=== PATIENT | male | born 1965 ===

== ENCOUNTER 2018-05-30 01:20 | Emergency (ER) | payer BC ==
[2018-05-30 01:27] VITALS: RESP 16
[2018-05-30] MEDS ORDERED: Sodium Chloride 0.9% 1,000 ML IV ONE (01:46)
[2018-05-30] MEDS ORDERED: Morphine 4 MG/ML VIAL ONE ×2 (01:53→04:39)
--- NOTE | 2018-05-30 01:58 | C.PDOC ---
History Of Present Illness 52 year old male presents to the ED c/o new onset RUQ abdominal pain that staretd today 2 hours [employer]. Patient reports symptoms started after eating heavy fatty foods. Patient reports his pain is localized and dull. Patient states he f eels bloated with some nausea. Patient denies fever, chills, vomit, diarrhea, back pain, rash. Time Seen by Provider: 05/30/18 01:40 Chief Complaint (Nursing): Abdominal Pain History Per: Patient History/Exam Limitations: no limitations Onset/Duration Of Symptoms: Hrs (2) Current Symptoms Are (Timing): Still Present Context: Food Location Of Pain/Discomfort: RUQ Radiation Of Pain To:: Other Quality Of Discomfort: Dull Associated Symptoms: Nausea. denies: Diarrhea, Urinary Symptoms Exacerbating Factors: Food Recent travel outside of the [place]: No Additional History Per: Patient Past Medical History Reviewed: Historical Data, Nursing Documentation, Vital Signs Vital Signs: Last Vital Signs Temp 97.2 F L 05/30/18 01:25 Pulse 71 05/30/18 01:25 Resp 16 05/30/18 01:25 BP 149/91 H 05/30/18 01:25 Pulse Ox 100 05/30/18 01:25 - Medical History PMH: No Chronic Diseases Surgical History: No Surg Hx Family History: States: Unknown Family Hx - Social History Hx Alcohol Use: No Hx Substance Use: No Review Of Systems Constitutional: Negative for: Fever, Chills Cardiovascular: Negative for: Chest Pain, Palpitations Respiratory: Negative for: Cough, Shortness of Breath Gastrointestinal: Positive for: Nausea, Abdominal Pain. Negative for: Vomiting, Diarrhea Skin: Negative for: Rash Neurological: Negative for: Weakness, Numbness Physical Exam - Physical Exam Appears: Non-toxic, In Acute Distress Skin: Normal Color, Warm, Dry Head: Atraumatic, Normacephalic Eye(s): bilateral: Normal Inspection Oral Mucosa: Moist Neck: Normal ROM, Supple Chest: Symmetrical Cardiovascular: Rhythm Regular Respiratory: Normal Breath Sounds, No Rales, No Rhonchi, No Wheezing Gastrointestinal/Abdominal: Soft, Tenderness (RUQ), No Guarding, No Rebound Extremity: Normal ROM, No Tenderness, No Swelling Neurological/Psych: Oriented x3, Normal Speech, Normal Cognition Gait: Steady ED Course And Treatment - Laboratory Results Result Diagrams: 05/30/18 02:03 05/30/18 02:03 O2 Sat by Pulse Oximetry: 100 (ON RA) Pulse Ox Interpretation: Normal - CT Scan/US US abdomen Other Rad Studies (CT/US): Read By Radiologist, Radiology Report Reviewed CT/US Interpretation: Ultrasound abdomen, limited. Indication: Right upper quadrant pain. Technique: Real-time ultrasound images were obtained. Findings: The liver is normal in size measuring 14.2 cm. Increased hepatic echogenicity. Nondilated common bile duct measuring 4 mm. Cholelithiasis. Non mobile gallstone is noted in the neck of the gallbladder. Normal gallbladder wall thickness measuring 2 mm. Negative sonographic Parkinson. Nonvisualization of the pancreas. Visualization of the IVC. Unremarkable aorta as visualized. Unremarkable right kidney measuring 10.8x5.1x5.2 cm. Impression: C holelithiasis. Impacted gallstone in the neck of the gallbladder suspicious for developing acute inflammatory pathology of the gallbladder. Surgical consultation is recommended. . Electronically signed on May 30, 2018 3:48:37 AM EST by: Jules Arriaga M.D., Certified by TONI, JOSEE, Neuroradiology Progress - Re-Evaluation Re-evaluation Note: 05/30/18 03:55 AS[facility]MPT. [facility] RAD REPORT REVIEWED. D/W SURG RESIDENT, WILL EVAL IN ER 05/30/18 04:30 SP EVAL SURG, PT REQUESTING OUTPT EVALATION - Data Reviewed Data Reviewed: Lab, Diagnostic imaging, Old records Medical Decision Making Medical Decision Making: Plan: * Labs * Morphine 2 mg IVP * Pepcid 20 mg IVP * IV fluids * Zofrab 4 mg IVP * US abdomen Disposition Counseled Patient/Family Regarding: Studies Performed, Diagnosis, Need For Followup, Rx Given - Disposition Referrals: Felix Goel MD [Staff Provider] - Disposition: HOME/ ROUTINE Disposition Time: 04:30 Condition: IMPROVED Prescriptions: Ondansetron ODT [Zofran ODT] 4 mg PO TID PRN #12 odt PRN Reason: Nausea/Vomiting oxyCODONE/Acetaminophen [Percocet 5/325 mg Tab] 1 ea PO QID #8 tab Instructions: Gallstones (DC) Forms: [employer] (Bahamian), Work Excuse - Clinical Impression Clinical Impression: Biliary colic - Scribe Statement The provider has reviewed the documentation as recorded by the Scribe Lev Anaya All medical record entries made by the [employer] were at my direction and personally dictated by me. I have reviewed the chart and agree that the record accurately reflects my personal performance of the history, physical exam, medical decision making, and the department course for this patient. I have also personally directed, reviewed, and agree with the discharge instructions and disposition.
[2018-05-30 02:08] LABS: BASO % 0.5 % (0.0-2.0); EOS # 0.1 K/uL (0.0-0.7); EOS % 1.1 % (0.0-4.0); LYMPH # 2.5 K/uL (1.0-4.3); LYMPH % 33.5 % (20.0-40.0); MEAN CELL VOLUME 89.2 fL (80.0-94.0); MEAN CORPUSCULAR HEMOGLOBIN 30.1 pg (27.0-31.0); MEAN CORPUSCULAR HGB CONC 33.7 g/dL (33.0-37.0); MEAN PLATELET VOLUME 8.2 fL (7.2-11.7); MONO # 0.5 K/uL (0.0-0.8); MONO % 6.2 % (0.0-10.0); NEUT # 4.4 K/uL (1.8-7.0); NEUT % 58.7 % (50.0-75.0); NRBC % 0.1 % (0.0-2.0); RBC 5.31 Mil/uL (4.40-5.90); RED CELL DISTRIBUTION WIDTH 13.3 % (11.5-14.5); WHITE BLOOD COUNT 7.5 K/uL (4.8-10.8)
[2018-05-30 02:18] LABS: ALB/GLOB RATIO 1.5 (1.0-2.1); ALBUMIN 4.9 g/dL (3.5-5.0); ALT/SGPT 108 U/L (21-72); AST/SGOT 88 U/L (17-59); BLOOD UREA NITROGEN 16 mg/dL (9-20); CALCIUM 9.4 mg/dl (8.6-10.4); GFR NON-AFRICAN AMERICAN > 60; LIPASE 252 U/L (23-300)
--- NOTE | 2018-05-30 04:18 | CP.PCM.CON ---
History of Present Illness - History of Present Illness History of Present Illness: Surgery Consult Note for Dr. Goel Consult: Symptomatic Cholelithiasis CC: RUQ Pain HPI: 52 year old male, no significant past medical history, who presents to the emergency department with sudden onset right upper quadrant pain and associated nausea. Patient states he had dinner (pork ribs, lithuanian rice, and cookies) at 7pm and by 9pm his symptoms began. He has never had this pain before. States it is localized to the RUQ, currently asymptomatic. Nothing alleviates or aggravates his symptoms. Denies f/c, v/d, SOB, CP, or urinary symptoms. PMH: Nephrolithiasis PSH: Denies FH: Noncontributory SH: Denies tobacco, alcohol, drugs ALL: NKDA Meds: See MAR Review of Systems - Constitutional Constitutional: absent: Chills, Fever - EENT Eyes: absent: Blurred Vision, Change in Vision Nose/Mouth/Throat: absent: Nasal Congestion, Nasal Discharge - Cardiovascular Cardiovascular: absent: Chest Pain, Dyspnea - Respiratory Respiratory: absent: Cough, Dyspnea - Gastrointestinal Gastrointestinal: Abdominal Pain, Nausea. absent: Constipation, Diarrhea, Vomiting - Genitourinary Genitourinary: absent: Difficulty Urinating, Dysuria - Musculoskeletal Musculoskeletal: absent: Back Pain, Neck Pain - Integumentary Integumentary: absent: Bleeding Lesions, Changing Lesions - Neurological Neurological: absent: Confusion, Dizziness - Psychiatric Psychiatric: absent: Anxiety, Depression Past Patient History - Past Social History Smoking Status: Never Smoked - PSYCHIATRIC Hx Substance Use: No - SURGICAL HISTORY Hx Surgeries: No Meds Home Medications: Home Medication List Medication Instructions Recorded Confirmed Type Ondansetron ODT [Zofran ODT] 4 mg PO TID PRN #12 odt 05/30/18 Rx oxyCODONE/Acetaminophen [Percocet 1 ea PO QID #8 tab 05/30/18 Rx 5/325 mg Tab] Allergies/Adverse Reactions: Allergies Allergy/AdvReac Type Severity Reaction Status Date / Time No Known Allergies Allergy Unverified 05/30/18 01:27 - Medications Medications: Current Medications Sodium Chloride (Sodium Chloride 0.9%) 1,000 mls @ 250 mls/hr IV .Q4H ONE Stop: 05/30/18 05:45 Last Admin: 01/26/19 01:58 Dose: 250 mls/hr Physical Exam - Constitutional Appears: Well, Non-toxic, No Acute Distress - Head Exam Head Exam: ATRAUMATIC, NORMAL INSPECTION, NORMOCEPHALIC - Eye Exam Eye Exam: EOMI - ENT Exam ENT Exam: Mucous Membranes Moist - Respiratory Exam Respiratory Exam: NORMAL BREATHING PATTERN. absent: Respiratory Distress - Cardiovascular Exam Cardiovascular Exam: REGULAR RHYTHM. absent: Tachycardia - GI/Abdominal Exam GI & Abdominal Exam: Normal Bowel Sounds, Soft, Tenderness. absent: Distended, Guarding, Rebound - Neurological Exam Neurological exam: Alert, Oriented x3 - Psychiatric Exam Psychiatric exam: Normal Affect, Normal Mood - Skin Skin Exam: Dry, Intact, Normal Color, Warm Results - Vital Signs Recent Vital Signs: Last Vital Signs Temp 97.2 F L 05/30/18 01:25 Pulse 71 05/30/18 01:25 Resp 16 05/30/18 01:25 BP 149/91 H 05/30/18 01:25 Pulse Ox 100 05/30/18 03:55 - Labs Result Diagrams: 05/30/18 02:03 05/30/18 02:03 Labs: Laboratory Results - last 24 hr 05/30/18 05/30/18 02:03 02:03 WBC 7.5 RBC 5.31 Hgb 16.0 Hct 47.4 MCV 89.2 MCH 30.1 MCHC 33.7 RDW 13.3 Plt Count 234 MPV 8.2 Neut % (Auto) 58.7 Lymph % (Auto) 33.5 [place] % (Auto) 6.2 Eos % (Auto) 1.1 Baso % (Auto) 0.5 Neut # (Auto) 4.4 Lymph # (Auto) 2.5 [place] # (Auto) 0.5 Eos # (Auto) 0.1 Baso # (Auto) 0.0 Sodium 141 Potassium 3.5 L Chloride 99 Carbon Dioxide 32 H Anion Gap 14 BUN 16 Creatinine 1.1 Est GFR ( Amer) > 60 Est GFR (Non-Af Amer) > 60 Random Glucose 115 H Calcium 9.4 Total Bilirubin 0.5 AST 88 H ALT 108 H Alkaline Phosphatase 115 Total Protein 8.1 Albumin 4.9 Globulin 3.2 Albumin/Globulin Ratio 1.5 Lipase 252 Assessment & Plan - Assessment and Plan (Free Text) Assessment: 52M w/ RUQ pain 2/2 symptomatic cholelithiasis Abd US: stone in the gallbladder neck, no pericholecystic fluid, no wall thic kening, no CBD stones or dilation Plan: Patient states he would like to discuss with his insurance company regarding coverage of any surgical intervention prior to admission for gallbladder removal At this time he is asymptomatic and states he would prefer to follow up with Dr. Goel in her office to schedule an elective cholecystectomy Pain medication will be provided by ER physician Recommended a low fat diet Recommended to return to the ED if symptoms return or worsen D/w Dr. Amando Caceres PGY1
[2018-05-30 04:35] VITALS: BP 126/80; PULSE 67; TEMP 98.2; O2SAT 95
--- NOTE | 2018-05-30 10:16 | US ---
Right upper quadrant abdominal ultrasound HISTORY: Right upper quadrant abdominal pain. Comparison: None available. Technique: Real-time sonography was performed through the right upper quadrant of the abdomen. Findings: Limited study secondary to gaseous distention of bowel. Liver: 14.2 centimeters in length. Increased echogenicity of the hepatic parenchymal cortex suggestive for fatty infiltration versus hepatic parenchymal disease. Clinical correlation. Gallbladder: Cholelithiasis. Prominent calculus measuring 1.7 x 1.1 x 1.4 centimeters lodged at the gallbladder neck. Normal wall thickness of 2 millimeters. Negative sonographic Parkinson's sign. Common bile duct measures 4 millimeters, within normal limits. Pancreas not well visualized. Limited visualization of the aorta and IVC. Visualized portions appear grossly preserved. Right kidney: 10.8 x 5.1 x 5.2 centimeters. No calculi or hydronephrosis. Impression: Cholelithiasis with prominent gallbladder calculus lodged at the neck of the gallbladder measuring up to 1.7 millimeters. Normal wall thickness of 2 millimeters. Negative sonographic Parkinson's sign. Clinical correlation. Increased echogenicity of the hepatic parenchymal cortex suggestive for fatty infiltration versus hepatic parenchymal disease. Clinical correlation. Pancreas not well visualized. A preliminary report was generated at 3:48 a.m. on 05/30/[address] Jules Arriaga from [employer].
== END 2018-05-30 05:01 | disposition home or self-care (01) ==
LOC: C.ER 01:20
DX: K80.20 Calculus of gallbladder without cholecystitis without obstruction (principal)
CPT/HCPCS: 76705; 80053; 83690; 85025; 96374; 96375; 96376; 99284; J2270; J2405; J7030

== ENCOUNTER 2018-09-23 07:14 | Outpatient (CLI) | payer BC | END 2018-09-23 07:15 | disposition home or self-care (01) | LOC: C.PAT 07:14 | DX: K80.10 Calculus of gallbladder with chronic cholecystitis without obstruction (principal) ==